=== PATIENT | male | born 1975 | race Hispanic/Latino ===

== ENCOUNTER 2018-12-07 15:45 | Emergency (ER) | payer SELFPAY ==
[2018-12-07 16:06] LABS: Bilirubin Negative (Negative); Blood, Urine Large (Negative); Clarity Cloudy (Clear); Glucose, Urine (Dipstick) Negative (Negative); Leukocyte Large (Negative); Nitrite Positive (Negative); Protein, Urine (Dipstick) 100 mg/dL (Neg-Trace); Specific Gravity, Urine 1.025 (1.005-1.030); Urobilinogen 0.2 mg/dL (0.2-1.0); pH, Urine 7.5 (5.0-9.0)
[2018-12-07 16:09] LABS: Squamous Epithelial 0-3 HPF (0-3); WBC/HPF 21-50 HPF (0-3)
[2018-12-07 16:10] LABS: Bacteria/HPF 2+ HPF (None Seen); Crystals/HPF 2+ AMORPH PHOS HPF (Negative)
[2018-12-07 16:35] LABS: Anion Gap 13 mmol/L (10-20); BUN (Urea Nitrogen) 13 mg/dL (8.9-20.6); Calc. Creatinine Clearance 0 mL/min (70-130); Calcium 8.9 mg/dL (7.8-10.44); Carbon Dioxide 22 mmol/L (22-29); Chloride 108 mmol/L (98-107); Estimated GFR-MDRD 83; Glucose 131 mg/dL (70-105); Potassium 3.7 mmol/L (3.5-5.1); Sodium 139 mmol/L (136-145)
--- NOTE | 2018-12-07 16:35 | CT ---
CT Stone Protocol: 12/07/2018 4:04 PM HISTORY: Left flank pain since Friday COMPARISON: None. Procedure: Multiple contiguous axial images were obtained and a CT of the abdomen and pelvis without IV contrast . Coronal reformats were performed. FINDINGS: This examination is limited for the evaluation of solid organs and vascular structures due to the lac k of intravenous contrast. Lower Chest: within normal limits. Abdomen: Liver: Diffuse fatty infiltration Bile Ducts: Normal caliber. Gallbladder: No calcified gallstones. Normal caliber wall. Pancreas: within normal limits. Spleen: within normal limits. Adrenals: within normal limits. Kidneys: Multiple nonobstructing calcifications in the lower pole the left kidney measuring up to 9 m m in size. Severe left hydronephrosis and enlargement of the proximal left ureter. No right hydronephrosis or right renal calculi. Pelvis: Reproductive Organs: No pelvic masses. Ureters: Severe enlargement of the proximal left ureter. There is a 4 mm calcification in the left ur eter where it abruptly transitions to a normal caliber ureter along the midportion. The calcification is not immediately at the transition point where the ureter is tortuous. Bladder: within normal limits. Bowel: Normal caliber. Mesenteric Lymph Nodes: No enlarged mesenteric lymph nodes. Peritoneum: No ascites or free air, no fluid collection. Vessels: Normal caliber aorta Retroperitoneum: within normal limits. Abdominal Wall: within normal limits. Bones: Degenerative changes in the spine. IMPRESSION: 1. Severe left hydronephrosis and proximal hydroureter. The ureter transitions to normal caliber liz g its midportion where a 4 mm calcification is present. This calcification is not immediately at the transition point and may or may not be a cause for the ureteral obstruction. 2. Multiple nonobstructing calcifications in a lower pole calyx of the left kidney. 3. Fatty liver
[2018-12-07] MEDS ORDERED: cefTRIAXone\\ROCEPHIN 1 GM VIAL ONE (16:58)
[2018-12-07] MEDS ORDERED: Lidocaine 1% PF 5 ML VIAL ONE (16:58)
[2018-12-10 21:59] LABS: Chlam.trachomatis by PCR,Urine Inconclusive (NotDetected)
== END 2018-12-07 17:23 | disposition home or self-care (01) ==
LOC: SCSER 15:45
DX: N39.0 Urinary tract infection, site not specified (principal); N13.2 Hydronephrosis with renal and ureteral calculous obstruction; N13.4 Hydroureter
CPT/HCPCS: 36415; 74176; 80048; 81003; 81015; 87491; 87591; 96372; J0696; J2001